=== PATIENT | female | born 1960 | race Caucasian/White ===

== ENCOUNTER → 2016-06-25 | Outpatient (CLI) | payer BC ==
--- NOTE | 2016-06-25 20:17 | DI ---
RIGHT DIAGNOSTIC MAMMOGRAMS, 06/25/2016 9:53 AM: Clinical History: Recall for abnormal screening mammogram. A focus of microcalcifications were identi fied in the right lateral aspect towards the 9:00 position near the central axis, and a new well-circ umscribed low-density opaque nodule was identified in the medial half of the right breast but not kelly ntified with certainty on the mediolateral oblique view. Prior Exam: 07/31/2009; 12/09/2011; 06/19/2016. Digital breast imaging of the right breast was performed. A true mediolateral projection and compress ion spot films are obtained in all three projections. Breast tissue density is rated as heterogenously dense. The microcalcifications have a benign appeara nce and they are not associated with any mass. The low-density opaque nodule seen on the craniocaudal view is again identified on the spot films. However, it is not visualized with certainty on the trisha tional views. Based on this single projection, it has a benign appearance. Skin contour, nipple, and lower axillary region are normal. BIRADS Category: 3: Probably benign finding. Initial short-interval follow-up suggested in 6 months f or the low-density opaque nodule in the medial aspect of the right breast. The punctate calcification s are benign. Follow Up: Breast ultrasound is pending. Readin. Probably benign. Initial short-interval follow-up suggested. 2. Breast ultrasound is pending.
--- NOTE | 2016-07-03 16:04 | DI ---
RIGHT BREAST ULTRASOUND, 06/25/2016 9:53 AM: Clinical History: Recall for abnormal screening mammogram. There was a new cluster of calcifications in the right lateral aspect of the breast and a new well-circumscribed low-density opaque nodule in t he medial half of the right breast. The patient has a personal history of breast cancer involving the left breast. Scans are performed by the technologist and myself through all four quadrants of the right breast wit h the high resolution linear array probe. Color Doppler ultrasound was performed. No solid mass is seen throughout the scans of the breast. Small cysts in the range of 3-4 mm are loca anant in the right upper-outer quadrant. No cyst is seen in the medial half of the right breast to expl ain the finding seen on mammography. Follow Up: A followup right diagnostic mammogram with right breast ultrasound is recommended in 6 mon ths to monitor the lesion seen on mammography in the medial half of the breast that could not be iden tified on the other views of the diagnostic right mammogram performed today. BIRADS Category: 3: Probably benign finding. Initial short-interval follow-up suggested as above. Reading: Probably benign finding - short interval follow-up suggested.
== END ==
LOC: US 09:30
PROVIDERS: ATTEND Physician Assistant Medical
DX: R92.8 Other abnormal and inconclusive findings on diagnostic imaging of breast (principal); Z85.3 Personal history of malignant neoplasm of breast
CPT/HCPCS: 76641; G0206; G0202